=== PATIENT | male | born 1945 | race Caucasian/White ===

== ENCOUNTER → 2017-04-11 | Outpatient (CLI) | payer OTHER | END | disposition home or self-care (01) | LOC: ECHO 09:47 | PROVIDERS: ATTEND Internal Medicine Cardiovascular Disease | DX: I35.0 Nonrheumatic aortic (valve) stenosis (principal) | CPT/HCPCS: 93017 ==

== ENCOUNTER → 2018-01-01 | Outpatient (CLI) | payer OTHER | END | disposition home or self-care (01) | LOC: ECHO 08:02 | DX: I08.3 Combined rheumatic disorders of mitral, aortic and tricuspid valves (principal) | CPT/HCPCS: 93306 ==

== ENCOUNTER → 2018-01-27 | Outpatient (CLI) | payer OTHER ==
[2018-01-28 03:22] LABS: MRSA BY PCR Negative (Negative)
== END | disposition home or self-care (01) ==
LOC: SURGPAT 13:13
DX: Z01.810 Encounter for preprocedural cardiovascular examination (principal); Z95.2 Presence of prosthetic heart valve
CPT/HCPCS: 71046; 87641; 93005

== ENCOUNTER → 2018-02-05 | Outpatient (CLI) | payer OTHER ==
[2018-02-06 02:13] LABS: HEMOGLOBIN A1C 4.4 % (4.8-5.6)
== END | disposition home or self-care (01) ==
LOC: LAB 07:39
DX: I35.0 Nonrheumatic aortic (valve) stenosis (principal)
CPT/HCPCS: 36415; 83036; 86850; 86900; 86901; 86920

== ENCOUNTER 2018-02-06 05:36 | Observation (INO) | payer OTHER ==
[2018-02-06] MEDS ORDERED: VANCOMYCIN 1GM IVPB FOR OMNI 250 ML IV ×3 (06:00)
[2018-02-06] MEDS ORDERED: SURGICEL HEMOSTAT 4X8 EACH. ×3 (06:05)
[2018-02-06] MEDS ORDERED: HEPARIN 30,000 UNIT/30 ML VIAL. ×12 (06:20→16:34)
[2018-02-06] MEDS ORDERED: ETOMIDATE 20 MG/10 ML VIAL. IV ×3 (06:20)
[2018-02-06] MEDS ORDERED: ROCURONIUM 100 MG/10 ML VIAL. ×9 (06:24→12:23)
[2018-02-06] MEDS ORDERED: PHENYLEPHRINE 10 MG/ML VIAL. ×3 (06:24)
[2018-02-06] MEDS ORDERED: MIDAZOLAM HCL/PF 2 MG/2 ML VIAL. ×9 (06:25→12:26)
[2018-02-06] MEDS ORDERED: SUFentanil 100 MCG/2 ML AMPUL. ×6 (06:25→07:55)
[2018-02-06 06:27] LABS: POC GLUCOSE 88 mg/dL (70-99)
[2018-02-06] MEDS ORDERED: NITROGLYCERIN PREMIX 250 ML IV ×3 (06:28)
[2018-02-06] MEDS ORDERED: VANCOMYCIN 1GM IVPB FOR OMNI. ×3 (06:30)
[2018-02-06] MEDS: IV RINGERS,LACTATED 1000ML 1,000 ML IV ×3 (06:32)
[2018-02-06] MEDS ORDERED: HYDROmorphone 2 MG/ML VIAL IV ×3 (07:00)
[2018-02-06] MEDS ORDERED: LIDOCAINE 1% PF 2 ML VIAL. ID ×3 (07:00)
[2018-02-06] MEDS ORDERED: MORPHINE SULFATE 4 MG/ML DISP.SYRIN. IV ×3 (07:00)
[2018-02-06] MEDS ORDERED: ONDANSETRON PF 4 MG/2 ML VIAL. IV ×3 (07:00)
[2018-02-06] MEDS ORDERED: PROCHLORPERAZINE 10 MG/2 ML VIAL. IV ×3 (07:00)
[2018-02-06] MEDS ORDERED: fentaNYL PF VIAL 100 MCG/2 ML VIAL IV ×6 (07:00)
[2018-02-06] MEDS ORDERED: ePHEDrine PF IN SALINE 50 MG/5 ML DISP.SYRIN IV ×3 (08:09)
[2018-02-06] MEDS: VANCOMYCIN 10GM VIAL for OR. ×3 (08:51)
[2018-02-06 09:03] LABS: HEMATOCRIT 35.7 % (39.0-53.0); HEMOGLOBIN 12.4 g/dL (13.0-17.5); PLATELET COUNT 133 x10^3/uL (140-400); WHITE BLOOD COUNT 5.5 x10^3/uL (4.0-11.0)
[2018-02-06] MEDS ORDERED: HEPARIN for IV BOLUS 10,000 UNIT/10 ML VIAL. ×9 (09:21→13:53)
[2018-02-06] MEDS: POTASSIUM CHLORIDE 15 MEQ, SODIUM BICARBONATE VIAL 12.5 MEQ in IV ELECTROLYTE-S (PH 7.4... IRR ×2 (09:46→19:00)
[2018-02-06] MEDS: POTASSIUM CHLORIDE 70 MEQ, SODIUM BICARBONATE VIAL 12.5 MEQ, LIDOCAINE 2% 24 ML in IV E... IRR ×6 (09:46→19:00)
[2018-02-06] MEDS: HEPARIN 20,000 UNIT in IV RINGERS,LACTATED 1000ML 1,000 ML IRR ×3 (10:18)
[2018-02-06] MEDS ORDERED: INSULIN REGULAR VIAL 150 UNIT in 0.9 % SODIUM CHLORIDE 150ML 150 ML IV ×3 (11:00)
[2018-02-06] MEDS ORDERED: AMIODARONE 900 MG in IV DEXTROSE 5% 500 ML IV ×3 (11:30)
[2018-02-06] MEDS ORDERED: CALCIUM CHLORIDE 1,000 MG/10 ML DISP.SYRIN IV ×15 (11:49→18:45)
[2018-02-06] MEDS ORDERED: AMIODARONE 150 MG/3 ML VIAL ×3 (11:49)
[2018-02-06] MEDS ORDERED: MANNITOL 25% 12.5 G/50 ML VIAL FOR OR. ×12 (11:49→17:32)
[2018-02-06] MEDS ORDERED: ALBUMIN HUMAN 25% 100 ML IV ×3 (11:49)
[2018-02-06] MEDS ORDERED: MAGNESIUM SULFATE 5 GM/10 ML VIAL. ×9 (11:49→16:34)
[2018-02-06] MEDS ORDERED: PROPOFOL 20 ML IV ×3 (11:51)
[2018-02-06] MEDS ORDERED: LIDOCAINE 1% PF 5 ML VIAL. ×9 (13:53→17:32)
[2018-02-06] MEDS ORDERED: ALBUMIN HUMAN 25% 200 ML IV ×3 (13:53)
[2018-02-06] MEDS ORDERED: SODIUM BICARB ADULT 8.4% 50 MEQ/50 ML DISP.SYRIN. ×15 (13:53→18:45)
[2018-02-06] MEDS ORDERED: ROCURONIUM 50 MG/5 ML VIAL. ×3 (15:18)
[2018-02-06] MEDS ORDERED: EPINEPHrine SYRINGE 1 MG/10 ML SYRINGE ×6 (15:23→18:45)
[2018-02-06] MEDS ORDERED: NACL IV ×3 (15:30)
[2018-02-06] MEDS ORDERED: DEXTROSE IV ×3 (15:30)
[2018-02-06] MEDS ORDERED: EPINEPHRINE IV ×3 (15:30)
[2018-02-06] MEDS ORDERED: MIDAZOLAM HCL/PF 5 MG/5 ML VIAL. ×3 (15:56)
[2018-02-06] MEDS ORDERED: MILRINONE 20MG/100ML PREMIX 100 ML IV ×3 (17:34)
[2018-02-06 17:47] LABS: IMMEDIATE SPIN CROSSMATCH 1 6
[2018-02-06 17:48] LABS: IMMEDIATE SPIN CROSSMATCH 1
[2018-02-06] MEDS ORDERED: NOREPINEPHRIN 8MG/250ML PREMIX 250 ML IV ×2 (18:15)
[2018-02-06] MEDS ORDERED: NOREPINEPHRIN PREMIX 250 ML IV (18:15)
[2018-02-06 18:21] LABS: IMMEDIATE SPIN CROSSMATCH 1
[2018-02-06] MEDS ORDERED: PROTAMINE 250 MG/25 ML VIAL IV ×3 (19:12)
[2018-02-06] MEDS ORDERED: ISOFLURANE > 120 MINUTES. IH ×3 (19:55)
[2018-02-06] MEDS ORDERED: ALBUMIN HUMAN 5% 500 ML IV ×3 (19:57)
[2018-02-06 19:58] LABS: ART BE ISTAT -1 mmol/L (0-3); ART BE ISTAT -13 mmol/L (0-3); ART BE ISTAT -3 mmol/L (0-3); ART BE ISTAT 0 mmol/L (0-3); ART BE ISTAT 1 mmol/L (0-3); ART BE ISTAT 2 mmol/L (0-3); ART BE ISTAT 9 mmol/L (0-3); ART GLUC ISTAT 116 mg/dL (70-99); ART GLUC ISTAT 118 mg/dL (70-99); ART GLUC ISTAT 119 mg/dL (70-99); ART GLUC ISTAT 126 mg/dL (70-99); ART GLUC ISTAT 128 mg/dL (70-99); ART GLUC ISTAT 132 mg/dL (70-99); ART GLUC ISTAT 135 mg/dL (70-99); ART GLUC ISTAT 146 mg/dL (70-99); ART GLUC ISTAT 147 mg/dL (70-99); ART GLUC ISTAT 153 mg/dL (70-99); ART GLUC ISTAT 158 mg/dL (70-99); ART GLUC ISTAT 163 mg/dL (70-99); ART GLUC ISTAT 171 mg/dL (70-99); ART GLUC ISTAT 180 mg/dL (70-99); ART GLUC ISTAT 196 mg/dL (70-99); ART GLUC ISTAT 201 mg/dL (70-99); ART GLUC ISTAT 87 mg/dL (70-99); ART HCO3 ISTAT 15 mmol/L (21-28); ART HCO3 ISTAT 20 mmol/L (21-28); ART HCO3 ISTAT 23 mmol/L (21-28); ART HCO3 ISTAT 24 mmol/L (21-28); ART HCO3 ISTAT 25 mmol/L (21-28); ART HCO3 ISTAT 26 mmol/L (21-28); ART HCO3 ISTAT 28 mmol/L (21-28); ART HCO3 ISTAT 31 mmol/L (21-28); ART HCT ISTAT 21 % (37-52); ART HCT ISTAT 22 % (37-52); ART HCT ISTAT 23 % (37-52); ART HCT ISTAT 24 % (37-52); ART HCT ISTAT 26 % (37-52); ART HCT ISTAT 27 % (37-52); ART HCT ISTAT 28 % (37-52); ART HCT ISTAT 30 % (37-52); ART HCT ISTAT 31 % (37-52); ART HCT ISTAT 33 % (37-52); ART HGB ISTAT 10.2 g/dL (14-18); ART HGB ISTAT 10.5 g/dL (14-18); ART HGB ISTAT 11.2 g/dL (14-18); ART HGB ISTAT 7.1 g/dL (14-18); ART HGB ISTAT 7.5 g/dL (14-18); ART HGB ISTAT 7.8 g/dL (14-18); ART HGB ISTAT 8.2 g/dL (14-18); ART HGB ISTAT 8.8 g/dL (14-18); ART HGB ISTAT 9.2 g/dL (14-18); ART HGB ISTAT 9.5 g/dL (14-18); ART ION CA ISTAT 1.02 mmol/L (1.13-1.32); ART ION CA ISTAT 1.15 mmol/L (1.13-1.32); ART ION CA ISTAT 1.23 mmol/L (1.13-1.32); ART ION CA ISTAT 1.24 mmol/L (1.13-1.32); ART ION CA ISTAT 1.25 mmol/L (1.13-1.32); ART ION CA ISTAT 1.26 mmol/L (1.13-1.32); ART ION CA ISTAT 1.48 mmol/L (1.13-1.32); ART ION CA ISTAT 1.52 mmol/L (1.13-1.32); ART ION CA ISTAT 1.54 mmol/L (1.13-1.32); ART ION CA ISTAT 1.65 mmol/L (1.13-1.32); ART ION CA ISTAT 1.74 mmol/L (1.13-1.32); ART ION CA ISTAT 1.76 mmol/L (1.13-1.32); ART ION CA ISTAT 1.77 mmol/L (1.13-1.32); ART ION CA ISTAT 1.87 mmol/L (1.13-1.32); ART ION CA ISTAT 2.22 mmol/L (1.13-1.32); ART K ISTAT 2.6 mmol/L (3.5-5.0); ART K ISTAT 3.8 mmol/L (3.5-5.0); ART K ISTAT 3.9 mmol/L (3.5-5.0); ART K ISTAT 4.3 mmol/L (3.5-5.0); ART K ISTAT 4.4 mmol/L (3.5-5.0); ART K ISTAT 4.6 mmol/L (3.5-5.0); ART K ISTAT 4.7 mmol/L (3.5-5.0); ART K ISTAT 4.8 mmol/L (3.5-5.0); ART K ISTAT 4.9 mmol/L (3.5-5.0); ART K ISTAT 5.1 mmol/L (3.5-5.0); ART K ISTAT 5.3 mmol/L (3.5-5.0); ART NA ISTAT 139 mmol/L (135-145); ART NA ISTAT 140 mmol/L (135-145); ART NA ISTAT 141 mmol/L (135-145); ART NA ISTAT 142 mmol/L (135-145); ART NA ISTAT 144 mmol/L (135-145); ART NA ISTAT 146 mmol/L (135-145); ART PCO2 ISTAT 24 mmHg (35-45); ART PCO2 ISTAT 33 mmHg (35-45); ART PCO2 ISTAT 35 mmHg (35-45); ART PCO2 ISTAT 40 mmHg (35-45); ART PCO2 ISTAT 42 mmHg (35-45); ART PCO2 ISTAT 43 mmHg (35-45); ART PCO2 ISTAT 45 mmHg (35-45); ART PCO2 ISTAT 46 mmHg (35-45); ART PCO2 ISTAT 47 mmHg (35-45); ART PCO2 ISTAT 49 mmHg (35-45); ART PCO2 ISTAT 52 mmHg (35-45); ART PCO2 ISTAT 56 mmHg (35-45); ART PCO2 ISTAT 59 mmHg (35-45); ART PH ISTAT 7.23 (7.35-7.45); ART PH ISTAT 7.27 (7.35-7.45); ART PH ISTAT 7.28 (7.35-7.45); ART PH ISTAT 7.29 (7.35-7.45); ART PH ISTAT 7.33 (7.35-7.45); ART PH ISTAT 7.34 (7.35-7.45); ART PH ISTAT 7.35 (7.35-7.45); ART PH ISTAT 7.36 (7.35-7.45); ART PH ISTAT 7.37 (7.35-7.45); ART PH ISTAT 7.41 (7.35-7.45); ART PH ISTAT 7.52 (7.35-7.45); ART PH ISTAT 7.58 (7.35-7.45); ART PO2 ISTAT 112 mmHg (75-100); ART PO2 ISTAT 180 mmHg (75-100); ART PO2 ISTAT 239 mmHg (75-100); ART PO2 ISTAT 243 mmHg (75-100); ART PO2 ISTAT 252 mmHg (75-100); ART PO2 ISTAT 260 mmHg (75-100); ART PO2 ISTAT 331 mmHg (75-100); ART PO2 ISTAT 337 mmHg (75-100); ART PO2 ISTAT 339 mmHg (75-100); ART PO2 ISTAT 340 mmHg (75-100); ART PO2 ISTAT 374 mmHg (75-100); ART PO2 ISTAT 385 mmHg (75-100); ART PO2 ISTAT 397 mmHg (75-100); ART PO2 ISTAT 415 mmHg (75-100); ART PO2 ISTAT 422 mmHg (75-100); ART PO2 ISTAT 432 mmHg (75-100); ART PO2 ISTAT 486 mmHg (75-100); ART SAT O2 SAT 100 % (95-99); ART SAT O2 SAT 97 % (95-99); ART SAT O2 SAT 99 % (95-99); ART TCO2 ISTAT 16 mmol/L (21-32); ART TCO2 ISTAT 20 mmol/L (21-32); ART TCO2 ISTAT 24 mmol/L (21-32); ART TCO2 ISTAT 26 mmol/L (21-32); ART TCO2 ISTAT 27 mmol/L (21-32); ART TCO2 ISTAT 28 mmol/L (21-32); ART TCO2 ISTAT 29 mmol/L (21-32); ART TCO2 ISTAT 30 mmol/L (21-32); ART TCO2 ISTAT 32 mmol/L (21-32); TOSPEC ART
[2018-02-07 09:55] LABS: ACT+ 541 SEC (90-125)
[2018-02-07 09:55] LABS: ACT+ 108 SEC (90-125)
[2018-02-07 09:55] LABS: ACT+ 498 SEC (90-125)
[2018-02-07 09:55] LABS: ACT+ 355 SEC (90-125)
[2018-02-07 09:56] LABS: ACT+ 574 SEC (90-125)
[2018-02-07 09:56] LABS: ACT+ 481 SEC (90-125)
[2018-02-07 09:56] LABS: ACT+ 513 SEC (90-125)
[2018-02-07 09:57] LABS: ACT+ 480 SEC (90-125)
[2018-02-07 09:57] LABS: ACT+ 550 SEC (90-125)
[2018-02-07 09:57] LABS: ACT+ 448 SEC (90-125)
[2018-02-07 09:57] LABS: ACT+ 453 SEC (90-125)
[2018-02-07 09:58] LABS: ACT+ 501 SEC (90-125)
[2018-02-07 09:58] LABS: ACT+ 662 SEC (90-125)
[2018-02-07 09:58] LABS: ACT+ 484 SEC (90-125)
[2018-02-07 09:58] LABS: ACT+ 427 SEC (90-125)
[2018-02-07 09:58] LABS: ACT+ 546 SEC (90-125)
[2018-02-07 09:59] LABS: ACT+ 466 SEC (90-125)
[2018-02-07 09:59] LABS: ACT+ 580 SEC (90-125)
[2018-02-07 09:59] LABS: ACT+ 478 SEC (90-125)
== END 2018-02-06 19:45 | disposition expired ==
LOC: OPSVCIP 05:36 → 1 WEST ICU 19:20
PROVIDERS: Thoracic Surgery (Cardiothoracic Vascular Surgery)
DX: I35.0 Nonrheumatic aortic (valve) stenosis (principal); R57.0 Cardiogenic shock; J45.40 Moderate persistent asthma, uncomplicated
CPT/HCPCS: 33365; 36415; 76376; 82803; 82962; 85027; 85347; 86850; 86900; 86901; 86920; 86927; 88305; 88311; 93312; 93320; 93325; C1769; C1781; G0378; G0379; J0171; J0282; J0690; J1265; J1644; J2150; J2250; J2260; J2704; J3370; J3475; J3490; J7040; J7120; P9016; P9017; P9035; P9045; P9046